=== PATIENT | female | born 1930 | race Caucasian/White ===

== ENCOUNTER 2017-02-08 17:26 | Inpatient (IN) | payer MEDICARE ==
[~2017-02-08] VITALS: Ht 147.3 cm; Wt 73.5 kg
[2017-02-08 17:26] VITALS: BP 182/88
[2017-02-08 17:51] LABS: BASO # 0.1 10*3/uL (0.0-0.1); BASO % 0.7 % (0.0-1.0); EOS # 0.3 10*3/uL (0.0-0.4); EOS % 3.3 % (1.0-4.0); HEMATOCRIT 40.4 % (37.0-47.0); HEMOGLOBIN 13.1 g/dl (12.0-16.0); LYMPH # 2.1 10*3/uL (1.3-4.4); MEAN CELL VOLUME 93.5 fl (81.0-99.0); MEAN CORPUSCULAR HGB 30.3 pg (27.0-31.0); MEAN CORPUSCULAR HGB CONC 32.4 g/dl (33.0-37.0); MEAN PLATELET VOLUME 9.8 fl (9.6-12.3); MONO # 0.9 10*3/uL (0.1-1.0); MONO % 9.3 % (3.0-9.0); NEUT # 5.8 10*3/uL (2.3-7.9); NEUT % 63.4 % (47.0-73.0); PLATELET COUNT AUTOMATED 220 10*3/uL (130-400); RED BLOOD COUNT 4.32 10*6/uL (4.10-5.10); RED CELL DISTRI WIDTH 13.2 % (0-14.5); WHITE BLOOD COUNT 9.2 10*3/uL (4.8-10.8)
[2017-02-08 18:07] LABS: ALBUMIN 4.1 gm/dl (3.1-4.5); ALKALINE PHOSPHATASE 60 U/L (45-117); BUN 32 mg/dl (7-24); CHLORIDE 107 mmol/L (98-107); CREATININE 1.61 mg/dL (0.55-1.02); POTASSIUM 4.1 mmol/L (3.5-5.1); SGOT/AST 19 IU/L (3-35); SGPT/ALT 24 U/L (12-78); SODIUM 140 mmol/L (136-145)
[2017-02-08 18:09] LABS: TROPONIN I < 0.015 ng/ml (<0.045)
--- NOTE | 2017-02-08 18:19 | NUR ---
NURSE REPORT TO 5TH FLOOR, ROOM 524. DR SYLVESTER NOW INSTRUCTS ME TO DELAY TAKING PT UPSTAIRS UNTIL THE HEAD CT RESULTS HAVE RETURNED.
[2017-02-08 18:33] LABS: ACT PARTIAL THROMBO TIME 22.7 SECONDS (20.8-31.5)
--- NOTE | 2017-02-08 18:33 | NUR ---
CT RESULTS NOW RETURN, TRANSPORT WILL NOW COMMENCE TO 524.
[2017-02-08 18:34] VITALS: BP 164/82
--- NOTE | 2017-02-08 18:41 | NUR ---
PHARMACY IS ALREADY CLOSED. MUST VERIFY MEDS TOMORROW
[2017-02-08 18:46] VITALS: BP 150/112; BP 164/82
--- NOTE | 2017-02-08 18:51 | NUR ---
Time: 1839 A 86 year old FEMALE admitted to 5E under services of MARLINE WHALEN DO, Pt. arrived via bed from ER. Chief complaint: STROKE/HX OF TIA. DIONTE MARCOS
[2017-02-08] MEDS ORDERED: ASPIR LOW81 MG PO (19:29)
[2017-02-08] MEDS ORDERED: TUMS200 MG PO (19:29)
[2017-02-08] MEDS ORDERED: ALENDRONATE SOD70 M1 PO (19:30)
[2017-02-08] MEDS ORDERED: VITAMIN D32000 UNIT PO (19:30)
[2017-02-08] MEDS ORDERED: FOSAMAX70 M1 PO (19:31)
[2017-02-08] MEDS ORDERED: LEVOTHYROXINE100 MC1 PO (19:32)
[2017-02-08] MEDS ORDERED: ZOCOR40 MG PO (19:32)
[2017-02-08] MEDS ORDERED: DIOVAN80 M1 PO (19:32)
[2017-02-08] MEDS ORDERED: PLAVIX75 M1 PO (19:33)
[2017-02-08 20:00] VITALS: BP 147/77
[2017-02-09] VITALS: BP 135/65
[2017-02-09 06:31] LABS: BASO # 0.1 10*3/uL (0.0-0.1); BASO % 0.7 % (0.0-1.0); EOS # 0.3 10*3/uL (0.0-0.4); EOS % 4.9 % (1.0-4.0); HEMATOCRIT 37.1 % (37.0-47.0); HEMOGLOBIN 11.8 g/dl (12.0-16.0); LYMPH # 1.3 10*3/uL (1.3-4.4); LYMPH % 18.1 % (27.0-41.0); MEAN CELL VOLUME 94.6 fl (81.0-99.0); MEAN CORPUSCULAR HGB 30.1 pg (27.0-31.0); MEAN CORPUSCULAR HGB CONC 31.8 g/dl (33.0-37.0); MEAN PLATELET VOLUME 10.3 fl (9.6-12.3); MONO # 0.7 10*3/uL (0.1-1.0); MONO % 10.1 % (3.0-9.0); NEUT # 4.5 10*3/uL (2.3-7.9); NEUT % 65.5 % (47.0-73.0); PLATELET COUNT AUTOMATED 194 10*3/uL (130-400); RED BLOOD COUNT 3.92 10*6/uL (4.10-5.10); RED CELL DISTRI WIDTH 13.2 % (0-14.5); WHITE BLOOD COUNT 6.9 10*3/uL (4.8-10.8)
[2017-02-09 07:01] LABS: CREATININE 1.43 mg/dL (0.55-1.02); FREE T4 1.18 ng/dl (0.76-1.46); PHOSPHOROUS 2.5 mg/dL (2.5-4.9); THYROID STIM HORMONE (HS) 0.278 uIU/ml (0.358-4.75)
[2017-02-09 07:14] LABS: VITAMIN D, 25-HYDROXY 33.9 ng/mL (30-100)
[2017-02-09 08:00] VITALS: BP 154/69
--- NOTE | 2017-02-09 08:07 | NUR ---
PT OFF FLOOR FOR ULTRASOUND OF CAROTIDS.
[2017-02-09 12:00] VITALS: BP 148/79
[2017-02-09] MEDS ORDERED: SIMVASTATIN80 MG PO (14:17)
[2017-02-09] MEDS ORDERED: ASPIRIN325 M2 PO (14:17)
[2017-02-09] MEDS ORDERED: NORVASC5 MG PO (14:17)
--- NOTE | 2017-02-09 14:40 | NUR ---
Discharge instructions reviewed with patient/family. Patient receptive and verbalizes understanding. Follow-up care arranged. Written instructions given to patient/family. APOLLO HURTADO
== END 2017-02-09 14:40 | disposition home or self-care (01) | DRG 682 ==
LOC: ED 17:26 → EDHOLD 18:04 → 5E 18:18
PROVIDERS: Emergency Medicine; Student in an Organized Health Care Education/Training Program; ADMIT Internal Medicine
DX: N17.0 Acute kidney failure with tubular necrosis (principal); R65.11 Systemic inflammatory response syndrome (SIRS) of non-infectious origin with acute organ dysfunction; I16.1 Hypertensive emergency; G45.1 Carotid artery syndrome (hemispheric); I10 Essential (primary) hypertension; E03.9 Hypothyroidism, unspecified; E66.9 Obesity, unspecified; M81.0 Age-related osteoporosis without current pathological fracture; D72.821 Monocytosis (symptomatic); R73.9 Hyperglycemia, unspecified; E83.41 Hypermagnesemia; Z90.710 Acquired absence of both cervix and uterus; Z82.49 Family history of ischemic heart disease and other diseases of the circulatory system; Z80.0 Family history of malignant neoplasm of digestive organs; Z79.82 Long term (current) use of aspirin; Z79.899 Other long term (current) drug therapy; Z68.33 Body mass index [BMI] 33.0-33.9, adult; Z86.73 Personal history of transient ischemic attack (TIA), and cerebral infarction without residual deficits

== ENCOUNTER → 2017-12-04 | Outpatient (CLI) | payer OTHER ==
[~2017-12-04] MED LIST: ALENDRONATE SOD70 M1 PO; ASPIR LOW81 MG PO; ASPIRIN325 M2 PO; DIOVAN80 M1 PO; FOSAMAX70 M1 PO; LEVOTHYROXINE100 MC1 PO; NORVASC5 MG PO; PLAVIX75 M1 PO; PREDNISONE10 MG PO; SIMVASTATIN80 MG PO; TUMS200 MG PO; VITAMIN D32000 UNIT PO; ZOCOR40 MG PO
== END | disposition home or self-care (01) ==
LOC: RAD 15:33
DX: M47.896 Other spondylosis, lumbar region (principal); M46.86 Other specified inflammatory spondylopathies, lumbar region

== ENCOUNTER → 2017-12-27 | Outpatient (CLI) | payer OTHER | END | disposition home or self-care (01) | LOC: MRI 09:07 | DX: M47.896 Other spondylosis, lumbar region (principal); M48.061 Spinal stenosis, lumbar region without neurogenic claudication; M54.18 Radiculopathy, sacral and sacrococcygeal region ==

== ENCOUNTER 2018-03-21 15:57 | Inpatient (IN) | payer OTHER ==
[~2018-03-21] VITALS: Ht 147.3 cm; Wt 71.9 kg
--- NOTE | ~2018-03-21 | EKG ---
[place], [place] ELECTROCARDIOGRAM REPORT NAME: LAKESHA MORRELL UNIT #: [id number] ROOM: 509 DOCTOR: EPIPHANY DRAFT REPORT BIRTHDATE: [birth year] [facility] Test Date: 2018-03-21 Test Time: 16:14:15 Pat Name: LAKESHA MORRELL Department: Room: 509 Gender: F Trick Rodeo Rider: RAPHAEL/AURA : 1930 Requested By: JEFFREY MALIN Order Number: [id number] Reading MD: Genaro Moses MD Measurements Intervals [place] Rate: 105 P: 39 [place]: 152 QRS: -10 QRSD: 77 T: 37 QT: 319 QTc: 422 Interpretive Statements Sinus tachycardia Electronically Signed On 03-22-2018 13:37:29 PST by Genaro Moses MD CM:EKGRPT:ELECTROCARDIOGRAM REPORT [id number] JEFFREY MALIN EPIPHANY DRAFT REPORT JEFFREY MALIN
[2018-03-21 16:00] VITALS: BP 122/64
[2018-03-21 16:25] LABS: BASO # 0.1 10*3/uL (0.0-0.1); BASO % 0.3 % (0.0-1.0); EOS % 0.1 % (1.0-4.0); HEMATOCRIT 37.2 % (37.0-47.0); HEMOGLOBIN 12.1 g/dl (12.0-16.0); LYMPH # 0.4 10*3/uL (1.3-4.4); LYMPH % 2.2 % (27.0-41.0); MEAN CELL VOLUME 97.1 fl (81.0-99.0); MEAN CORPUSCULAR HGB 31.6 pg (27.0-31.0); MEAN CORPUSCULAR HGB CONC 32.5 g/dl (33.0-37.0); MEAN PLATELET VOLUME 9.9 fl (9.6-12.3); MONO # 1.2 10*3/uL (0.1-1.0); MONO % 6.7 % (3.0-9.0); NEUT # 16.5 10*3/uL (2.3-7.9); PLATELET COUNT AUTOMATED 196 10*3/uL (130-400); RED BLOOD COUNT 3.83 10*6/uL (4.10-5.10); RED CELL DISTRI WIDTH 13.2 % (0-14.5); WHITE BLOOD COUNT 18.3 10*3/uL (4.8-10.8)
[2018-03-21 16:52] LABS: ALBUMIN 3.6 gm/dl (3.1-4.5); ALKALINE PHOSPHATASE 59 U/L (45-117); BUN 21 mg/dl (7-24); CHLORIDE 105 mmol/L (98-107); LIPASE 112 U/L (73-393); POTASSIUM 3.9 mmol/L (3.5-5.1); SGOT/AST 21 IU/L (3-35); SGPT/ALT 23 U/L (12-78); SODIUM 141 mmol/L (136-145); TOTAL PROTEIN 7.6 gm/dL (6.4-8.2)
[2018-03-21 16:57] LABS: TROPONIN I < 0.015 ng/ml (<0.045)
[2018-03-21 17:40] LABS: BILIRUBIN NEGATIVE (NEGATIVE); BLOOD 1+ (NEGATIVE); CLARITY CLEAR (CLEAR); COLOR YELLOW (YELLOW); GLUCOSE NEGATIVE (NEGATIVE); KETONE 2+ (NEGATIVE); LEUKO ESTERASE TRACE (NEGATIVE); NITRITE NEGATIVE (NEGATIVE); PH 5.5 (5.0-9.0); SPECIFIC GRAVITY 1.025 (1.005-1.030); UROBILINOGEN 0.2 E.U./dl (0.2-1.0)
[2018-03-21 17:48] LABS: BACTERIA 1+
[2018-03-21 18:00] VITALS: BP 143/66
[2018-03-21 18:58] VITALS: BP 130/50
--- NOTE | 2018-03-21 19:01 | NUR ---
NURSE TO NURSE REPORT GIVEN TO THIS NURSE.
--- NOTE | 2018-03-21 19:08 | NUR ---
PATIENT LAYING IN BED AWAKE. AOX3. NO DISTRESS NOTED. RESP EASY AND NONLABORED.
[2018-03-21 20:02] VITALS: BP 119/59
--- NOTE | 2018-03-21 20:05 | NUR ---
PATIENT UP AND USING BED SIDE COMMODE. AOX3. RESP EASY AND NONLABORED. RN WILL CONT TO MONITOR
[2018-03-21 21:44] VITALS: BP 139/58
[2018-03-21 22:06] VITALS: BP 126/79
--- NOTE | 2018-03-21 22:20 | NUR ---
NURSE TO NURSE REPORT GIVEN AT BEDSIDE TO NURSE URIARTE
[2018-03-21] MEDS ORDERED: ASPIRIN CHEWABL81 MG PO (22:33)
[2018-03-21] MEDS ORDERED: SIMVASTATIN40 MG PO (22:35)
[2018-03-22] VITALS: BP 126/79
--- NOTE | 2018-03-22 00:29 | NUR ---
PATIENT C/O SORE THROAT REQUESTING CEPACOL LOZENGERS. NOTFIED DR. BUSTILLOS
[2018-03-22 07:11] LABS: BASO # 0.1 10*3/uL (0.0-0.1); BASO % 0.5 % (0.0-1.0); EOS % 0.2 % (1.0-4.0); HEMATOCRIT 36.1 % (37.0-47.0); HEMOGLOBIN 11.4 g/dl (12.0-16.0); LYMPH # 0.9 10*3/uL (1.3-4.4); LYMPH % 8.6 % (27.0-41.0); MEAN CELL VOLUME 99.2 fl (81.0-99.0); MEAN CORPUSCULAR HGB 31.3 pg (27.0-31.0); MEAN CORPUSCULAR HGB CONC 31.6 g/dl (33.0-37.0); MEAN PLATELET VOLUME 9.9 fl (9.6-12.3); MONO # 1.2 10*3/uL (0.1-1.0); MONO % 11.2 % (3.0-9.0); NEUT # 8.7 10*3/uL (2.3-7.9); PLATELET COUNT AUTOMATED 173 10*3/uL (130-400); RED BLOOD COUNT 3.64 10*6/uL (4.10-5.10); RED CELL DISTRI WIDTH 13.4 % (0-14.5)
[2018-03-22 07:32] LABS: ALBUMIN 3.1 gm/dl (3.1-4.5); CREATININE 1.37 mg/dL (0.55-1.02); FREE T4 1.33 ng/dl (0.76-1.46); PHOSPHOROUS 2.4 mg/dL (2.5-4.9); POTASSIUM 3.7 mmol/L (3.5-5.1); TOTAL PROTEIN 6.7 gm/dL (6.4-8.2)
[2018-03-22 07:36] LABS: THYROID STIM HORMONE (HS) 0.071 uIU/ml (0.358-4.75)
[2018-03-22 08:00] VITALS: BP 118/60; BP 130/72
--- NOTE | 2018-03-22 09:30 | NUR ---
PT IV SITE INFILTRATED AND LEAKING IN LEFT AC. NEW IV ESTABLISHED IN RIGHT ARM #22G.
[2018-03-22 12:00] VITALS: BP 128/52
[2018-03-22 16:00] VITALS: BP 125/64
[2018-03-22 20:00] VITALS: BP 123/56
[2018-03-23] VITALS: BP 128/65
--- NOTE | 2018-03-23 00:43 | NUR ---
Requested and medicated with Cepacol at 1940 for complaints of sore throat with minimal relief later voiced. Will continue to monitor.
[2018-03-23 06:37] LABS: BASO # 0.1 10*3/uL (0.0-0.1); BASO % 0.6 % (0.0-1.0); EOS # 0.2 10*3/uL (0.0-0.4); EOS % 2.2 % (1.0-4.0); HEMATOCRIT 34.7 % (37.0-47.0); HEMOGLOBIN 11.1 g/dl (12.0-16.0); LYMPH # 1.2 10*3/uL (1.3-4.4); LYMPH % 10.7 % (27.0-41.0); MEAN CELL VOLUME 100.3 fl (81.0-99.0); MEAN CORPUSCULAR HGB 32.1 pg (27.0-31.0); MEAN PLATELET VOLUME 10.1 fl (9.6-12.3); MONO # 1.1 10*3/uL (0.1-1.0); MONO % 10.3 % (3.0-9.0); NEUT # 8.1 10*3/uL (2.3-7.9); NEUT % 75.8 % (47.0-73.0); PLATELET COUNT AUTOMATED 168 10*3/uL (130-400); RED BLOOD COUNT 3.46 10*6/uL (4.10-5.10); RED CELL DISTRI WIDTH 13.6 % (0-14.5); WHITE BLOOD COUNT 10.7 10*3/uL (4.8-10.8)
[2018-03-23 07:12] LABS: CREATININE 1.33 mg/dL (0.55-1.02); POTASSIUM 3.4 mmol/L (3.5-5.1)
[2018-03-23 09:30] VITALS: BP 112/60
--- NOTE | 2018-03-23 09:40 | NUR ---
PROVIDED CEPACOL LOZENGE FOR SORE THROAT.
[2018-03-23 12:00] VITALS: BP 117/50
--- NOTE | 2018-03-23 12:18 | NUR ---
PROVIDED CEPACOL LOZENGE FOR SORE THROAT.
[2018-03-23 16:00] VITALS: BP 148/58
[2018-03-23 20:00] VITALS: BP 128/53
[2018-03-24] VITALS: BP 119/62
--- NOTE | 2018-03-24 01:50 | NUR ---
Requested and medicated with Zofran for nausea and upset stomach since eating meatloaf with gravy at dinner. Zofran effective, denies nausea or upset stomach. Will continue to monitor.
[2018-03-24 06:40] LABS: BASO % 0.5 % (0.0-1.0); EOS # 0.4 10*3/uL (0.0-0.4); EOS % 4.4 % (1.0-4.0); HEMATOCRIT 35.3 % (37.0-47.0); HEMOGLOBIN 11.3 g/dl (12.0-16.0); LYMPH # 0.9 10*3/uL (1.3-4.4); LYMPH % 9.9 % (27.0-41.0); MEAN CELL VOLUME 98.9 fl (81.0-99.0); MEAN CORPUSCULAR HGB 31.7 pg (27.0-31.0); MEAN PLATELET VOLUME 9.9 fl (9.6-12.3); MONO # 0.9 10*3/uL (0.1-1.0); MONO % 9.9 % (3.0-9.0); NEUT # 6.4 10*3/uL (2.3-7.9); NEUT % 74.8 % (47.0-73.0); PLATELET COUNT AUTOMATED 169 10*3/uL (130-400); RED BLOOD COUNT 3.57 10*6/uL (4.10-5.10); RED CELL DISTRI WIDTH 13.2 % (0-14.5); WHITE BLOOD COUNT 8.6 10*3/uL (4.8-10.8)
[2018-03-24 07:13] LABS: CREATININE 1.12 mg/dL (0.55-1.02); POTASSIUM 3.2 mmol/L (3.5-5.1)
[2018-03-24 08:00] VITALS: BP 146/68
--- NOTE | 2018-03-24 09:00 | NUR ---
Wood Heel Fitter Machine in to talk to patient. Patient states lives at home alone with her daughter living close by. There are 0 steps in the home. There is a ramp. Physician: Dr. Coronel in [facility]: [facility] Home health services: none Patient's level of ADLs: INDEPENDENT Patient has working utilities: yes DME: none Follow-up physician's appointment after d/c: will be made by the hospitalist nurse director upon discharge Does patient want to access PORTAL?: no Discharge plan discussed with patient. She lives at home alone in [facility] on [address] with her daughter living close by. She is independent in her ADLs and ambulation. Discussed home health care services and she denies any home needs at this time. When medically stable she will be discharged to home. MUNA SOSA
--- NOTE | 2018-03-24 09:37 | NUR ---
ADMINISTERED PO K-DUR FOR K+ 3.3 THIS AM ON LABS. PROVIDED CEPACOL LOZENGE FOR SORE THROAT/CONGESTION.
[2018-03-24] MEDS ORDERED: Cepacol PO (10:37)
[2018-03-24] MEDS ORDERED: Flonase 0.05% 120 Me NAS (10:37)
[2018-03-24] MEDS ORDERED: MUCINEX ER600 MG PO (10:37)
[2018-03-24] MEDS ORDERED: FLAGYL500 MG PO (10:38)
[2018-03-24 12:00] VITALS: BP 90/56
--- NOTE | 2018-03-24 12:15 | NUR ---
Discharge instructions reviewed with patient. Patient receptive and verbalizes understanding. Follow-up care arranged. Written instructions given to patient. MARS EMERY
--- NOTE | 2018-03-24 14:15 | NUR ---
PATIENT DISCHARGED TO [facility] BY WHEELCHAIR, ACCOMPANIED BY [facility], FOR TRANSPORT HOME BY PRIVATE VEHICLE WITH DAUGHTER.
--- NOTE | 2018-03-25 08:19 | NUR ---
PHYSICAL THERAPY Nursing screen received. Patient discharged. Thank you. Gertrude Russo,PT
--- NOTE | 2018-03-26 09:39 | NUR ---
Nursing screen received 03/24/18 and patient was discharged before Occupational Therapy evaluation could be completed. Mana Valentino OTR/l
== END 2018-03-24 14:15 | disposition home or self-care (01) | DRG 871 ==
LOC: ED 15:57 → EDHOLD 21:14 → 5E 21:14
PROVIDERS: Family Medicine; Nurse Practitioner Family; Student in an Organized Health Care Education/Training Program; ADMIT Emergency Medicine
DX: A41.9 Sepsis, unspecified organism (principal); N17.0 Acute kidney failure with tubular necrosis; E87.2 Acidosis; K52.9 Noninfective gastroenteritis and colitis, unspecified; N18.3 Chronic kidney disease, stage 3 (moderate); I12.9 Hypertensive chronic kidney disease with stage 1 through stage 4 chronic kidney disease, or unspecified chronic kidney disease; E03.9 Hypothyroidism, unspecified; E66.9 Obesity, unspecified; M81.0 Age-related osteoporosis without current pathological fracture; E78.5 Hyperlipidemia, unspecified; R65.20 Severe sepsis without septic shock; R31.9 Hematuria, unspecified; E78.00 Pure hypercholesterolemia, unspecified; K44.9 Diaphragmatic hernia without obstruction or gangrene; K76.0 Fatty (change of) liver, not elsewhere classified; Z86.73 Personal history of transient ischemic attack (TIA), and cerebral infarction without residual deficits; Z90.710 Acquired absence of both cervix and uterus; Z90.49 Acquired absence of other specified parts of digestive tract; Z80.0 Family history of malignant neoplasm of digestive organs; Z83.3 Family history of diabetes mellitus; Z68.33 Body mass index [BMI] 33.0-33.9, adult

== ENCOUNTER 2018-04-03 09:26 | Inpatient (IN) | payer OTHER ==
[2018-04-03] VITALS (7 sets, daily range): BP systolic 105–147; BP diastolic 55–85
[~2018-04-03] VITALS: Ht 147.3 cm; Wt 71.4 kg
--- NOTE | ~2018-04-03 | EKG ---
[place], [place] ELECTROCARDIOGRAM REPORT NAME: LAKESHA MORRELL UNIT #: [id number] ROOM: 408 DOCTOR: EPIPHANY DRAFT REPORT BIRTHDATE: [birth year] [facility] Test Date: 2018-04-03 Test Time: 09:46:16 Pat Name: LAKESHA MORRELL Department: Room: 408 Gender: F Intensive Care Nurse: : 1930 Requested By: MILLY BIRMINGHAM DNP Order Number: [id number] Reading MD: Galindo Forrest MD Measurements Intervals [place] Rate: 106 P: 54 SD: 154 QRS: -24 QRSD: 73 T: 56 QT: 335 QTc: 445 Interpretive Statements Sinus tachycardia Ventricular premature complex Borderline left axis deviation Low voltage, precordial leads Compared to ECG 03/21/2018 16:14:15 Ventricular premature complex(es) now present Low QRS voltage now present Electronically Signed On 04-04-2018 15:54:45 PST by Galindo Forrest MD CM:EKGRPT:ELECTROCARDIOGRAM REPORT [id number] MILLY BIRMINGHAM DNP EPIPHANY DRAFT REPORT MILLY BIRMINGHAM DNP
[~2018-04-03 09:26] MED LIST changes: +ASPIRIN CHEWABL81 MG PO; +Cepacol PO; +FLAGYL500 MG PO; +Flonase 0.05% 120 Me NAS; +MUCINEX ER600 MG PO; +SIMVASTATIN40 MG PO
[2018-04-03 10:02] LABS: BASO # 0.1 10*3/uL (0.0-0.1); BASO % 0.7 % (0.0-1.0); EOS # 0.3 10*3/uL (0.0-0.4); EOS % 2.9 % (1.0-4.0); HEMATOCRIT 39.1 % (37.0-47.0); HEMOGLOBIN 12.9 g/dl (12.0-16.0); LYMPH # 1.7 10*3/uL (1.3-4.4); MEAN CELL VOLUME 95.6 fl (81.0-99.0); MEAN CORPUSCULAR HGB 31.5 pg (27.0-31.0); MEAN PLATELET VOLUME 9.5 fl (9.6-12.3); MONO # 0.7 10*3/uL (0.1-1.0); MONO % 6.4 % (3.0-9.0); NEUT # 8.1 10*3/uL (2.3-7.9); NEUT % 73.9 % (47.0-73.0); PLATELET COUNT AUTOMATED 360 10*3/uL (130-400); RED BLOOD COUNT 4.09 10*6/uL (4.10-5.10); RED CELL DISTRI WIDTH 13.2 % (0-14.5)
[2018-04-03 10:11] LABS: ACT PARTIAL THROMBO TIME 21.5 SECONDS (20.8-31.5)
[2018-04-03 10:17] LABS: ALBUMIN 3.8 gm/dl (3.1-4.5); ALKALINE PHOSPHATASE 48 U/L (45-117); BUN 25 mg/dl (7-24); CHLORIDE 105 mmol/L (98-107); CREATININE 1.67 mg/dL (0.55-1.02); LIPASE 575 U/L (73-393); POTASSIUM 3.8 mmol/L (3.5-5.1); SGOT/AST 33 IU/L (3-35); SGPT/ALT 31 U/L (12-78); SODIUM 138 mmol/L (136-145); TOTAL PROTEIN 7.9 gm/dL (6.4-8.2); TROPONIN I < 0.015 ng/ml (<0.045)
[2018-04-03 17:02] LABS: BILIRUBIN NEGATIVE (NEGATIVE); BLOOD NEGATIVE (NEGATIVE); CLARITY CLEAR (CLEAR); COLOR YELLOW (YELLOW); GLUCOSE NEGATIVE (NEGATIVE); KETONE NEGATIVE (NEGATIVE); LEUKO ESTERASE NEGATIVE (NEGATIVE); NITRITE NEGATIVE (NEGATIVE); PH 6.5 (5.0-9.0); UROBILINOGEN 0.2 E.U./dl (0.2-1.0)
[2018-04-03 17:46] LABS: EPITHELIAL CELLS 0-2; HYALINE CAST 0-2; MUCOUS TRACE; WBC 16-20 wbc/hpf (0-5)
[2018-04-04] VITALS: BP 118/52
[2018-04-04 06:50] LABS: BASO # 0.1 10*3/uL (0.0-0.1); BASO % 0.8 % (0.0-1.0); EOS # 0.4 10*3/uL (0.0-0.4); EOS % 5.8 % (1.0-4.0); HEMATOCRIT 35.2 % (37.0-47.0); LYMPH # 1.7 10*3/uL (1.3-4.4); LYMPH % 26.4 % (27.0-41.0); MEAN CORPUSCULAR HGB CONC 31.3 g/dl (33.0-37.0); MONO # 0.5 10*3/uL (0.1-1.0); MONO % 8.3 % (3.0-9.0); NEUT # 3.6 10*3/uL (2.3-7.9); NEUT % 57.6 % (47.0-73.0); PLATELET COUNT AUTOMATED 264 10*3/uL (130-400); RED BLOOD COUNT 3.55 10*6/uL (4.10-5.10); RED CELL DISTRI WIDTH 13.4 % (0-14.5); WHITE BLOOD COUNT 6.3 10*3/uL (4.8-10.8)
[2018-04-04 06:53] LABS: MEAN CELL VOLUME 99.2 fl (81.0-99.0)
[2018-04-04 07:29] LABS: CREATININE 1.47 mg/dL (0.55-1.02); PHOSPHOROUS 2.6 mg/dL (2.5-4.9); TOTAL PROTEIN 6.4 gm/dL (6.4-8.2)
[2018-04-04 08:00] VITALS: BP 126/82
[2018-04-04] MEDS ORDERED: PROTONIX40 MG PO (10:32)
[2018-04-04] MEDS ORDERED: ZOFRAN4 MG PO (10:32)
== END 2018-04-04 11:28 | disposition home or self-care (01) | DRG 391 ==
LOC: ED 09:26 → 4E 11:24 → EDHOLD 11:24 → 4E 11:34
PROVIDERS: Internal Medicine; Nurse Practitioner Family; ADMIT Internal Medicine
DX: R10.13 Epigastric pain (principal); N17.0 Acute kidney failure with tubular necrosis; E87.2 Acidosis; R11.0 Nausea; E78.5 Hyperlipidemia, unspecified; N18.3 Chronic kidney disease, stage 3 (moderate); M81.0 Age-related osteoporosis without current pathological fracture; E03.9 Hypothyroidism, unspecified; R73.9 Hyperglycemia, unspecified; I12.9 Hypertensive chronic kidney disease with stage 1 through stage 4 chronic kidney disease, or unspecified chronic kidney disease; Z90.49 Acquired absence of other specified parts of digestive tract; Z86.73 Personal history of transient ischemic attack (TIA), and cerebral infarction without residual deficits; Z90.710 Acquired absence of both cervix and uterus; Z80.0 Family history of malignant neoplasm of digestive organs; Z79.82 Long term (current) use of aspirin

== ENCOUNTER 2018-07-16 00:28 | Emergency (ER) | payer OTHER ==
[~2018-07-16] VITALS: Ht 147.3 cm; Wt 68.5 kg
--- NOTE | ~2018-07-16 | EKG ---
[place], [place] ELECTROCARDIOGRAM REPORT NAME: LAKESHA MORRELL UNIT #: [id number] ROOM: DOCTOR: EPIPHANY DRAFT REPORT BIRTHDATE: [birth year] [facility] Test Date: 2018-07-16 Test Time: 00:52:49 Pat Name: LAKESHA MORRELL Department: ED Room: Gender: F [employer] Cente[employer] And Edger: Genaro Crenshaw : 1930 Requested By: KAITY VELÁSQUEZ Order Number: [id number] Reading MD: Adelita Oconnell MD Measurements Intervals [place] Rate: 87 P: 89 [place]: 166 QRS: -1 QRSD: 71 T: 56 QT: 349 QTc: 420 Interpretive Statements Sinus rhythm Low voltage, extremity leads Compared to ECG 05/16/2018 21:34:04 No significant changes Electronically Signed On 07-18-2018 9:28:59 PDT by Adelita Oconnell MD CM:EKGRPT:ELECTROCARDIOGRAM REPORT 0052 [id number] KAITY GREEN DRAFT REPORT KAITY VELÁSQUEZ DO
[~2018-07-16 00:28] MED LIST changes: +PROTONIX40 MG PO; +ZOFRAN4 MG PO
[2018-07-16 01:03] LABS: BASO # 0.1 10*3/uL (0.0-0.1); BASO % 0.7 % (0.0-1.0); EOS # 0.4 10*3/uL (0.0-0.4); HEMATOCRIT 40.1 % (37.0-47.0); HEMOGLOBIN 13.4 g/dl (12.0-16.0); LYMPH # 1.4 10*3/uL (1.3-4.4); LYMPH % 16.5 % (27.0-41.0); MEAN CELL VOLUME 93.3 fl (81.0-99.0); MEAN CORPUSCULAR HGB 31.2 pg (27.0-31.0); MEAN CORPUSCULAR HGB CONC 33.4 g/dl (33.0-37.0); MONO # 0.7 10*3/uL (0.1-1.0); MONO % 8.4 % (3.0-9.0); NEUT # 5.9 10*3/uL (2.3-7.9); PLATELET COUNT AUTOMATED 216 10*3/uL (130-400); RED CELL DISTRI WIDTH 13.7 % (0-14.5); WHITE BLOOD COUNT 8.6 10*3/uL (4.8-10.8)
[2018-07-16 01:20] LABS: ALBUMIN 4.1 gm/dl (3.1-4.5); ALKALINE PHOSPHATASE 45 U/L (45-117); BUN 26 mg/dl (7-24); CHLORIDE 106 mmol/L (98-107); CREATININE 1.59 mg/dL (0.55-1.02); SGOT/AST 20 IU/L (3-35); SGPT/ALT 23 U/L (12-78); SODIUM 141 mmol/L (136-145); TOTAL PROTEIN 7.5 gm/dL (6.4-8.2)
[2018-07-16 01:23] LABS: TROPONIN I < 0.015 ng/ml (<0.045)
[2018-07-16] MEDS ORDERED: PREDNISONE50 MG PO (01:43)
[2018-07-16 02:02] LABS: BILIRUBIN NEGATIVE (NEGATIVE); BLOOD NEGATIVE (NEGATIVE); CLARITY CLEAR (CLEAR); COLOR YELLOW (YELLOW); GLUCOSE NEGATIVE (NEGATIVE); KETONE NEGATIVE (NEGATIVE); LEUKO ESTERASE 1+ (NEGATIVE); NITRITE NEGATIVE (NEGATIVE); SPECIFIC GRAVITY <= 1.005 (1.005-1.030); UROBILINOGEN 0.2 E.U./dl (0.2-1.0)
[2018-07-16 02:07] LABS: BACTERIA TRACE; EPITHELIAL CELLS 0-2; RBC 0-2 rbc/hpf (0-2); WBC 16-20 wbc/hpf (0-5)
== END 2018-07-16 02:08 | disposition home or self-care (01) ==
LOC: ED 00:28
PROVIDERS: Student in an Organized Health Care Education/Training Program
DX: R42 Dizziness and giddiness (principal); G89.29 Other chronic pain; E78.5 Hyperlipidemia, unspecified; E03.9 Hypothyroidism, unspecified; I12.9 Hypertensive chronic kidney disease with stage 1 through stage 4 chronic kidney disease, or unspecified chronic kidney disease; N18.3 Chronic kidney disease, stage 3 (moderate); M81.0 Age-related osteoporosis without current pathological fracture; Z79.899 Other long term (current) drug therapy; Z79.82 Long term (current) use of aspirin; Z86.73 Personal history of transient ischemic attack (TIA), and cerebral infarction without residual deficits; Z90.710 Acquired absence of both cervix and uterus; Z90.49 Acquired absence of other specified parts of digestive tract